=== PATIENT | female | born 2000 | race African-American/Black ===

== ENCOUNTER 2020-11-19 11:45 | Emergency (ER) | payer OTHER ==
[~2020-11-19] VITALS: Ht 172.7 cm; Wt 66.8 kg
[~2020-11-19 11:45] MED LIST: ACET100D30 PO
[2020-11-19 15:00] VITALS: BP 114/70
== END 2020-11-19 15:15 | disposition home or self-care (01) ==
LOC: EMS 11:45
DX: R07.9 Chest pain, unspecified (principal); R06.02 Shortness of breath
CPT/HCPCS: 71045; 93005; 99283

== ENCOUNTER 2020-12-25 11:04 | Emergency (ER) | payer OTHER ==
[~2020-12-25] VITALS: Ht 172.7 cm; Wt 62.3 kg
[2020-12-25 12:05] VITALS: BP 121/76
[2020-12-25] MEDS ORDERED: ACETAMINOPHEN 500 MG TABLET PO ONE (12:30)
[2020-12-25] MEDS ORDERED: ACETAMINOPHEN 650 MG/20.3 ML SOLUTION UDCUP PO ONE (13:00)
[2020-12-25 13:12] LABS: COVID AG,FIA SOURCE NASOPHARYNGEAL
[2020-12-25 13:34] LABS: RAPID GROUP A STREP NEGATIVE (NEGATIVE)
[2020-12-25 13:41] LABS: INFLUENZA TYPE A NEGATIVE FOR TYPE A (NEGATIVE); INFLUENZA TYPE B NEGATIVE FOR TYPE B (NEGATIVE)
== END 2020-12-25 14:06 | disposition home or self-care (01) ==
LOC: EMS 11:06
DX: U07.1 COVID-19 (principal); J02.9 Acute pharyngitis, unspecified
CPT/HCPCS: 81025; 87426; 87430; 87804; 99283; U0003